=== PATIENT | male | born 1995 | race Caucasian/White ===

== ENCOUNTER 2022-10-30 20:39 | Emergency (ER) | payer OTHER, SELFPAY ==
[2022-10-30] MEDS ORDERED: Amoxicillin/Potassium Clav 875 MG TAB ONE (21:59)
[2022-10-30] MEDS ORDERED: Bacitracin 1 PK ONE (22:18)
== END 2022-10-30 22:33 | disposition home or self-care (01) ==
LOC: ERS 20:39
DX: S81.852A Open bite, left lower leg, initial encounter (principal); W54.0XXA Bitten by dog, initial encounter
CPT/HCPCS: 12002